=== PATIENT | female | born 1980 | race Caucasian/White ===

== ENCOUNTER 2017-01-09 21:07 | Inpatient (IN) | payer SELFPAY ==
[~2017-01-09] VITALS: Ht 152.4 cm; Wt 59.0 kg
--- NOTE | 2017-01-09 21:40 | NUR ---
BIB SELF, C/O FLU-LIKE SYMPTOMS, COUGH, HEADACHE, SORETHROAT X 3 MOS, NAD NOTED, VSS, RESP EVEN AND UNLABORED, SKIN WARM AND DRY. PT PUT ON MONITOR. WAITING FOR MD VILLANUEVA.
--- NOTE | 2017-01-09 22:35 | NUR ---
URINE SENT TO LAB
[2017-01-09 22:52] LABS: BASOPHILS % (AUTO) 0.4 % (0.0-2.0); EOSINOPHILS % (AUTO) 0.3 % (0.0-6.0); HEMATOCRIT 37 % (33-45); HEMOGLOBIN 12.4 g/dL (11.5-14.8); LYMPHOCYTES # (AUTO) 2.2 /CMM (0.8-4.8); LYMPHOCYTES % (AUTO) 26.7 % (20.0-44.0); MEAN CORPUSCULAR HEMOGLOBIN 29 PG (26.0-33.0); MEAN CORPUSCULAR HGB CONC 34 g/dl (31.0-36.0); MEAN CORPUSCULAR VOLUME 85 fL (82-100); MONOCYTES # (AUTO) 0.8 /CMM (0.1-1.30); MONOCYTES % (AUTO) 9.3 % (2.0-12.0); NEUTROPHILS # (AUTO) 5.1 /CMM (1.8-8.9); NEUTROPHILS % (AUTO) 63.3 % (43.0-81.0); PLATELET COUNT (AUTO) 184 /CMM (150-450); RDW COEFFICIENT OF VARIATION 13.5 (11.5-15.0); RED BLOOD CELL COUNT(AUTO) 4.34 MIL/uL (4.0-5.2); WHITE BLOOD COUNT (AUTO) 8.1 K/uL (4.3-11.0)
[2017-01-09 22:53] LABS: APPEARANCE,URINE SL CLOUDY (CLEAR); BILIRUBIN,URINE NEGATIVE (NEGATIVE); BLOOD, URINE 1+ Ery/uL (NEGATIVE); COLOR,URINE YELLOW (YELLOW); KETONES,URINE NEGATIVE (NEGATIVE); LEUKOCYTE ESTERASE ,URINE 1+ (NEGATIVE); NITRITE, URINE POSITIVE (NEGATIVE); PROTEIN,URINE NEGATIVE (NEGATIVE); UGLUCOSE NEGATIVE (NEGATIVE)
[2017-01-09 23:02] LABS: BACTERIA,URINE Few /HPF (None Seen); SQUAMOUS EPITHELIAL CELL,UR Moderate /HPF (None Seen)
[2017-01-09 23:07] LABS: CALCIUM, SERUM 8.8 mg/dL (8.5-10.1); CREATININE 0.7 mg/dL (0.6-1.3); POTASSIUM 3.7 mmol/L (3.5-5.1)
[2017-01-09 23:10] LABS: INR 0.9 (0.87-1.13); PROTHROMBIN TIME 9.4 SECS (9.5-12.7)
--- NOTE | 2017-01-09 23:26 | NUR ---
PT NOT A CANIDATE FOR RHOGAM. MADE AWARE
[2017-01-10] MEDS ORDERED: CEFTRIAXONE 2 G in IV D5W 50 ML IV ONE ×2
--- NOTE | 2017-01-10 00:10 | NUR ---
[facility] DR. RL TOLLIVER.
--- NOTE | 2017-01-10 00:28 | NUR ---
[facility] EPIC 2nd call DR. SHINE PAGED.
--- NOTE | 2017-01-10 00:41 | NUR ---
3rd call to [facility] paged, w/ no response.
[2017-01-10] MEDS ORDERED: CEFTRIAXONE 1 G VIAL ONE (01:05)
--- NOTE | 2017-01-10 01:26 | NUR ---
Report given to ANDERW Ray for pt admission to [facility] rm [id number].
[2017-01-10] MEDS ORDERED: IV NS 0.9% 1,000 ML IV PRN ×2 (01:34→01:45)
[2017-01-10 02:00] VITALS: BP 104/65
[2017-01-10] MEDS ORDERED: ONDANSETRON HCL/PF 4 MG/2 ML VIAL IVP PRN ×2 (02:00→02:15)
[2017-01-10] MEDS ORDERED: ACETAMINOPHEN 325 MG TABLET PO PRN ×2 (02:00→02:15)
[2017-01-10] MEDS ORDERED: MAGNESIUM HYDROXIDE 30 ML UDC PO PRN ×2 (02:00→02:15)
[2017-01-10] MEDS ORDERED: HYDROCODONE/APAP 5/325MG 1 EACH TABLET PO PRN ×2 (02:00→02:15)
[2017-01-10] MEDS ORDERED: ZOLPIDEM TARTRATE 5 MG TABLET PO PRN ×2 (02:00→02:15)
[2017-01-10] MEDS ORDERED: MAG HYDROX/AL HYDROX/SIMETH 30 ML UDC PO PRN ×2 (02:00→02:15)
[2017-01-10] MEDS ORDERED: Z GUARD REMEDY 2 OZ OINT TP PRN ×2 (02:00→02:15)
--- NOTE | 2017-01-10 02:00 | NUR ---
MS RN NOTES ADMITTED THIS 31 Y.O. FEMALE FROM ER PER WHEELCHAIR,CHIEF COMPLAINTS OF FLU LIKE SYMPTOMS,COUGH,HEADACHE FOR ALMOST 3 MOS.ALERT,ORIENTED X4,CLAIMED TO BE FOR LESS THAN 2 WEEKS,SALINE LOCK RIGHT FOREARM #20 INTACT AND PATENT.NO SKIN ISSUES..BED ON LOWEST POSITION AND LOCK.CALL LIGHT IN REACH,NEEDS ANTICIPATED.
[2017-01-10 02:07] VITALS: BP 104/65
--- NOTE | 2017-01-10 02:35 | NUR ---
MS RN NOTES STARTED ON NS AT 75ML/HR RATE ORDERED.
--- NOTE | 2017-01-10 05:30 | NUR ---
MS RN NOTES AT BEDSIDE.
--- NOTE | 2017-01-10 06:00 | NUR ---
RN NOTES NO DIET ORDER,SENT MESSAGE TO DR SHINE,AWAITING TO CALL BACK.
--- NOTE | 2017-01-10 06:18 | NUR ---
MS RN NOTES NO SIGNIFICANT CHANGE IN STATUS.AFEBRILE,NO EPISODE OF COUGHING NOTED.IN NO ACUTE DISTRESS.WILL ENDORSE TO DAY NURSE FOR JAVI.
[2017-01-10 08:00] VITALS: BP 92/58
--- NOTE | 2017-01-10 08:40 | NUR ---
MS RN RECEIVED ON BED, AWAKE,ALERT,ORIENTED X4,NOT IN ANY FORM OF DISTRESS, RESPIRATIONS EVEN AND UNLABORED, NO SOB NOTED. LUNGS ARE CLEAR,ABDOMEN SOFT,POSITIVE BOWEL SOUNDS, DENIES PAIN AT THIS TIME, WILL MONITOR PATIENT'S CONDITION.
--- NOTE | 2017-01-10 09:00 | NUR ---
MS RN BREAKFAST SERVED,TOLERATED WELL.
--- NOTE | 2017-01-10 10:00 | NUR ---
MS RN WAS SEEN BY DR. HILL Thakur/ ORDERS MADE AND CARRIED OUT.
[2017-01-10 16:00] VITALS: BP 97/61
--- NOTE | 2017-01-10 18:41 | NUR ---
MS RN ON BED, NO DISTRESS NOTED, DC PLAN IN AM.
--- NOTE | 2017-01-10 19:29 | NUR ---
MS RN OPENING NOTES: RECEIVED PT IN BED AND IS AWAKE WITH BOYFRIEND AT BEDSIDE. PT IS A/OX4. NO COMPLAINTS OF PAIN AT THIS TIME. NO S/S OF DISTRESS AT THIS TIME. RESPIRATIONS EVEN AND UNLABORED. NO SOB NOTED. PT HAS IV ON R FOREARM #20G AND IS PATENT AND INTACT AND IS BEING INFUSED WITH NS AT 75ML/HR. CALL LIGHT WITHIN PT'S REACH. BED KEPT IN LOW, LOCKED POSITION, AND SIDE RAILS X 2 UP. WILL CONTINUE TO MONITOR PT.
[2017-01-10 20:00] VITALS: BP 99/64
[2017-01-10] MEDS ORDERED: CEFTRIAXONE 1 G VIAL IM SCH (21:00)
[2017-01-11] MEDS ORDERED: CEFTRIAXONE 1 G in IV D5W 50 ML IV SCH ×2
--- NOTE | 2017-01-11 05:38 | NUR ---
MS RN NOTES: PT WAS DISCONNECTED FROM IV TO USE RESTROOM. PT DOES NOT WANT TO BE CONNECTED TO HER IV FLUIDS FOR NOW. WILL TRY AGAIN AT ANOTHER TIME.
--- NOTE | 2017-01-11 06:34 | NUR ---
MS RN CLOSING NOTES: ALL NEEDS WERE ATTENDED AND ANTICIPATED FOR. PT IS RESTING COMFORTABLY IN BED. BOYFRIEND AT BEDSIDE. PT IS A/OX4. NO COMPLAINTS OF PAIN AT THIS TIME. NO S/S OF DISTRESS AT THIS TIME. RESPIRATIONS EVEN AND UNLABORED. NO SOB NOTED. PT HAS IV ON R FOREARM #20G AND IS PATENT AND INTACT. CALL LIGHT WITHIN PT'S REACH. BED KEPT IN LOW, LOCKED POSITION, AND SIDE RAILS X 2 UP. WILL ENDORSE TO AM NURSE FOR JAVI.
--- NOTE | 2017-01-11 07:14 | NUR ---
RN OPEN NOTES RECEIVE REPORT FROM LEGAL WRITING PROFESSOR NURSE. PATIENT IS IN BED, ALERT AND ORIENTED TO NAME, PLACE AND TIME. BOYFRIEND AT BEDSIDE. WILL CONTINUE TO MONITOR AND ASSESS PATIENT THROUGHOUT MY SHIFT
[2017-01-11 08:00] VITALS: BP 104/56
[2017-01-11] MEDS ORDERED: CEPH-570 PO (09:15)
--- NOTE | 2017-01-11 09:40 | NUR ---
METEOROLOGICAL EQUIPMENT REPAIRER NOTES PATIENT DISCHARGE ORDER RECEIVED AND CARRIED OUT. PATIENT IS LEAVING IN A STABLE CONDITION. NO SIGNS AND SYMPTOMS OF DISTRESS. DENIED PAIN. IV SITE REMOVED. ID BAND REMOVED. ALL DISCHARGE INSTRUCTION EXPLAINED TO PATIENT AND BOYFRIEND. BOTH VERBALIZED UNDERSTANDING. PATIENT ADVISED TO FOLLOW P WITH A OBGYN GIUSEPPE. PRESCRIPTION SENT ELECTRONICALLY TO PHARMACY OF CHOICE. ALL PERSONAL BELONGING WITH PATIENT AT TIME OF DISCHARGE. BOTH DISCHARGE INSTRUCTION AND BELONGING FORM SIGNED BY PATIENT AND PLACED IN THE CHART. PATIENT'S BOYFRIEND PICKED UP PATIENT HOME VIA A PRIVATE CAR.
== END 2017-01-11 09:40 | disposition home or self-care (01) | DRG 690 ==
LOC: ER 21:09 → MEDSG2 01-10 02:01
PROVIDERS: ADMIT Internal Medicine; ATTEND Internal Medicine
DX: N39.0 Urinary tract infection, site not specified (principal); B96.20 Unspecified Escherichia coli [E. coli] as the cause of diseases classified elsewhere; Z32.01 Encounter for pregnancy test, result positive
CPT/HCPCS: 36415; 76805-TC; 80048-TC; 81000-TC; 83605-TC; 84702-TC; 85025-TC; 85730-TC; 87040-TC; 87081-TC; 87086-TC; 87186-TC; J0696; J7030; J7060; Z7610

== ENCOUNTER 2017-04-04 00:19 | Emergency (ER) | payer SELFPAY ==
[~2017-04-04] VITALS: Ht 172.7 cm; Wt 63.5 kg
[~2017-04-04 00:19] MED LIST: CEPH-570 PO
--- NOTE | 2017-04-04 00:30 | NUR ---
TO BED 16 A 36 YO FEMALE PATIENT BBSELF AND SAID, "BEEN BLEEDING FOR 3 MONTHS; MISCARRIED 5 DAYS AGO. " VSS. NAD NOTED. SKIN WARM AND DRY. GOWNED. COMFORT MEASURES RENDERED.
--- NOTE | 2017-04-04 00:48 | NUR ---
Inte[facility] paged for ultrasound
--- NOTE | 2017-04-04 01:01 | NUR ---
STARTED A SALINE LOCK ON THE LAC G20, BLOOD DRAWN AND SENT TO LAB.
[2017-04-04 01:09] LABS: BASOPHILS # (AUTO) 0.1 /CMM (0.0-0.2); BASOPHILS % (AUTO) 0.8 % (0.0-2.0); EOSINOPHILS # (AUTO) 0.2 /CMM (0.0-0.7); EOSINOPHILS % (AUTO) 2.8 % (0.0-6.0); HEMATOCRIT 38 % (33-45); HEMOGLOBIN 12.9 g/dL (11.5-14.8); LYMPHOCYTES % (AUTO) 30.3 % (20.0-44.0); MEAN CORPUSCULAR HEMOGLOBIN 29 PG (26.0-33.0); MEAN CORPUSCULAR HGB CONC 34 g/dl (31.0-36.0); MEAN CORPUSCULAR VOLUME 86 fL (82-100); MONOCYTES # (AUTO) 0.6 /CMM (0.1-1.30); MONOCYTES % (AUTO) 9.7 % (2.0-12.0); NEUTROPHILS # (AUTO) 3.8 /CMM (1.8-8.9); NEUTROPHILS % (AUTO) 56.4 % (43.0-81.0); PLATELET COUNT (AUTO) 204 /CMM (150-450); RDW COEFFICIENT OF VARIATION 13.4 (11.5-15.0); RED BLOOD CELL COUNT(AUTO) 4.43 MIL/uL (4.0-5.2); WHITE BLOOD COUNT (AUTO) 6.7 K/uL (4.3-11.0)
[2017-04-04 01:11] LABS: BILIRUBIN,URINE NEGATIVE (NEGATIVE); BLOOD, URINE 3+ Ery/uL (NEGATIVE); COLOR,URINE RED (YELLOW); LEUKOCYTE ESTERASE ,URINE 1+ (NEGATIVE); NITRITE, URINE POSITIVE (NEGATIVE); PH,URINE 6.5 (5.0-8.0); PROTEIN,URINE 3+ mg/dl (NEGATIVE); UGLUCOSE NEGATIVE (NEGATIVE)
[2017-04-04 01:12] LABS: APPEARANCE,URINE CLOUDY (CLEAR)
[2017-04-04 01:15] LABS: KETONES,URINE 1+ (NEGATIVE)
[2017-04-04 01:17] LABS: CALCIUM, SERUM 9.1 mg/dL (8.5-10.1); CREATININE 0.8 mg/dL (0.6-1.3); POTASSIUM 3.1 mmol/L (3.5-5.1)
[2017-04-04 01:17] LABS: BACTERIA,URINE Many /HPF (None Seen); RBC,URINE TOO NUMEROUS TO COUN /HPF (0-2); SQUAMOUS EPITHELIAL CELL,UR Many /HPF (None Seen)
[2017-04-04 01:28] LABS: ALBUMIN 3.6 g/dL (3.4-5.0); BILIRUBIN,DIRECT 0.1 mg/dL (0.0-0.2); BILIRUBIN,TOTAL 0.2 mg/dL (0.2-1.0); INR 0.95 (0.87-1.13); TOTAL PROTEIN, SERUM 7.2 g/dL (6.4-8.2)
--- NOTE | 2017-04-04 02:50 | NUR ---
DR SCHNEIDER ON THE PHONE WITH DR ADAMS.
--- NOTE | 2017-04-04 02:51 | NUR ---
DR. BRYAN TOLLIVER; CALL TRANSFERRED TO DR. SCHNEIDER
[2017-04-04] MEDS ORDERED: POTASSIUM CHLORIDE 20 MEQ TAB.PRT.SR PO ONE ×2 (03:30→03:33)
[2017-04-04] MEDS ORDERED: CIPROFLOXACIN HCL 250 MG TABLET PO ONE (03:30)
--- NOTE | 2017-04-04 03:30 | NUR ---
IV removed. Catheter intact and site benign. Pressure and 4x4 applied to site. No bleeding noted. Patient discharged to home in stable condition. Written and verbal after care instructions given. Patient verbalizes understanding of instruction. Patient is ambulatory with steady gait, accompanied by . vss. nad noted. no further complaints.
[2017-04-04] MEDS ORDERED: CIPROFLOXACIN HCL 500 MG TABLET ONE (03:33)
[2017-04-04 03:37] VITALS: BP 118/69
== END 2017-04-04 03:38 | disposition home or self-care (01) ==
LOC: ER 00:23
DX: O03.33 Metabolic disorder following incomplete spontaneous abortion (principal); E87.6 Hypokalemia; F32.9 Major depressive disorder, single episode, unspecified
CPT/HCPCS: 36415; 76856; 80048; 80076; 81001; 84702; 85025; 85730; 87077; 87086; 87186; 99285; A4606; A6403; Z7610; 81000-TC

== ENCOUNTER 2019-05-31 21:09 | Emergency (ER) | payer OTHER ==
[~2019-05-31] VITALS: Ht 152.4 cm; Wt 68.0 kg
[2019-05-31 21:09] VITALS: BP 120/77
--- NOTE | 2019-05-31 21:26 | NUR ---
DR SCHNEIDER AT BEDSIDE FOR EVAL
== END 2019-05-31 21:59 | disposition home or self-care (01) ==
LOC: ER 21:10
DX: R06.02 Shortness of breath (principal); F32.9 Major depressive disorder, single episode, unspecified; F41.9 Anxiety disorder, unspecified